=== PATIENT | female | born 1995 | race Asian ===

== ENCOUNTER 2024-02-24 22:32 | Emergency (ER) | payer BC ==
[~2024-02-24] VITALS: Ht 162.6 cm; Wt 71.7 kg
[2024-02-24 22:36] VITALS: BP_SYST 129; PULSE 80; RESP 17; O2SAT 99
[2024-02-25] MEDS ORDERED: NAPR-1172 PO (00:14)
== END 2024-02-25 00:39 | disposition home or self-care (01) ==
LOC: SED 22:32
DX: S62.622A Displaced fracture of middle phalanx of right middle finger, initial encounter for closed fracture (principal); Z79.899 Other long term (current) drug therapy; W18.39XA Other fall on same level, initial encounter; Y93.89 Activity, other specified; Y92.89 Other specified places as the place of occurrence of the external cause; Y99.8 Other external cause status
CPT/HCPCS: 73140; 99283